=== PATIENT | female | born 1965 | race Caucasian/White ===

== ENCOUNTER 2020-10-28 13:19 | Inpatient (IN) ==
[2020-10-28] MEDS ORDERED: Nitroglycerin 0.4 MG TAB.SUBL SL PRN (15:58)
[2020-10-28] MEDS: *HR* OxyCODONE/APAP 5/325 TABLET PO PRN (18:50)
[2020-10-28] MEDS: Ranolazine 500 MG TAB.ER.12H PO SCH (20:32)
[2020-10-28] MEDS: Pregabalin 50 MG CAPSULE PO SCH (20:32)
[2020-10-28] MEDS: *HR* Metformin 500 MG TABLET PO SCH (20:32)
[2020-10-28] MEDS: carvediloL 25 MG TABLET PO SCH (20:35)
[2020-10-29] MEDS: CANAGLIFLOZIN PO SCH (00:22)
[2020-10-29] MEDS: *HR* OxyCODONE/APAP 5/325 TABLET PO PRN ×3 (00:54→16:53)
[2020-10-29 08:06] LABS: Basophils % 0.6 %; Eosinophils # 0.1 K/mcL (0.0-0.6); Eosinophils % 1.3 %; Hematocrit 23.3 % (35.3-44.9); Hemoglobin 7.8 g/dL (11.5-15.4); Immature Granulocytes % 1.3 % (0-4); Lymphocytes # 1.4 K/mcL (0.6-4.6); Lymphocytes % 20.1 %; Mean Corpuscular HGB Conc 33.5 g/dL (31.6-35.5); Mean Corpuscular Hemoglobin 28.3 pg (28.0-33.3); Mean Corpuscular Volume 84.4 fL (83.0-100.0); Mean Platelet Volume 10.6 fL (9.4-12.4); Monocytes # 0.8 K/mcL (0.0-1.3); Monocytes % 11.6 %; Neutrophils # 4.6 K/mcL (1.6-8.9); Platelet Count 279 K/mcL (140-400); Red Blood Count 2.76 M/mcL (3.82-4.97); Red Cell Distribution Width 13.4 % (11.5-14.5); Segmented Neutrophils % 65.1 %; White Blood Count 7.1 K/mcL (4.3-11.1)
[2020-10-29 08:21] LABS: BUN/Creatinine Ratio 19 (6-26); Blood Urea Nitrogen 13 mg/dL (6-20); Carbon Dioxide 31 mEq/L (23-29); Chloride 98 mEq/L (98-107); Glucose 180 mg/dL (70-105); Osmolality,Calculated 285 (280-300); Potassium 3.6 mEq/L (3.5-5.1); Sodium 135 mEq/L (136-145); eGFR For African Americans > 60 (> 60); eGFR For Non-African Americans > 60 (> 60)
[2020-10-29] MEDS: lisinopriL 20 MG TABLET PO SCH (08:28)
[2020-10-29] MEDS: Ranolazine 500 MG TAB.ER.12H PO SCH ×2 (08:29→20:34)
[2020-10-29] MEDS: *HR* Amiodarone 200 MG TABLET PO SCH (08:29)
[2020-10-29] MEDS: FLUoxetine 20 MG CAPSULE PO SCH (08:29)
[2020-10-29] MEDS: Aspirin Enteric Coated 81 MG Tablet PO SCH (08:29)
[2020-10-29] MEDS: carvediloL 25 MG TABLET PO SCH ×2 (08:29→16:53)
[2020-10-29] MEDS: *HR* Metformin 500 MG TABLET PO SCH ×2 (08:29→20:34)
[2020-10-29] MEDS: *HR* Pioglitazone 15 MG TABLET PO SCH (08:30)
[2020-10-29] MEDS ORDERED: Insulin DETEMIR 100 UNIT/ML X5UNITS SUBQ SCH (09:00)
[2020-10-29] MEDS ORDERED: Dextrose Gel 15 GM/37.5 ML TUBE PO PRN ×2 (11:54)
[2020-10-29] MEDS ORDERED: D5% in Water 1,000 ML IVC PRN (11:54)
[2020-10-29] MEDS ORDERED: *HR* Dextrose 50 % in Water (Vial) 50 ML VIAL IVP PRN (11:54)
[2020-10-29] MEDS ORDERED: Insulin DETEMIR 100 UNIT/ML X5UNITS SUBQ ONE ×2 (16:00→16:45)
[2020-10-29] MEDS: (Dulaglutide [Trulicity] 1.5 MG/0.5 ML Pen.Injctr) SQ SCH (16:22)
[2020-10-29] MEDS ORDERED: Insulin LISPRO 300 UNITS/3 ML VIAL SUBQ SCH ×2 (16:30→21:00)
[2020-10-29] MEDS: Pregabalin 50 MG CAPSULE PO SCH (20:41)
[2020-10-30] MEDS: *HR* OxyCODONE/APAP 5/325 TABLET PO PRN ×3 (01:04→20:46)
[2020-10-30] MEDS: CANAGLIFLOZIN PO SCH ×2 (02:57→20:58)
[2020-10-30 05:49] LABS: BUN/Creatinine Ratio 23 (6-26); Blood Urea Nitrogen 22 mg/dL (6-20); Calcium 7.9 mg/dL (8.6-10.3); Carbon Dioxide 30 mEq/L (23-29); Chloride 97 mEq/L (98-107); Glucose 207 mg/dL (70-105); Osmolality,Calculated 287 (280-300); Potassium 4.2 mEq/L (3.5-5.1); Sodium 134 mEq/L (136-145); eGFR For African Americans > 60 (> 60); eGFR For Non-African Americans > 60 (> 60)
[2020-10-30] MEDS: *HR* Metformin 500 MG TABLET PO SCH ×2 (08:16→20:22)
[2020-10-30] MEDS: Aspirin Enteric Coated 81 MG Tablet PO SCH (08:16)
[2020-10-30] MEDS: *HR* Pioglitazone 15 MG TABLET PO SCH (08:16)
[2020-10-30] MEDS: FLUoxetine 20 MG CAPSULE PO SCH (08:16)
[2020-10-30] MEDS: *HR* Amiodarone 200 MG TABLET PO SCH (08:16)
[2020-10-30] MEDS: Ranolazine 500 MG TAB.ER.12H PO SCH ×2 (08:17→20:22)
[2020-10-30] MEDS: carvediloL 6.25 MG TABLET PO SCH ×2 (08:17→16:36)
[2020-10-30] MEDS: Insulin DETEMIR 100 UNIT/ML X5UNITS SUBQ SCH ×2 (08:23→20:25)
[2020-10-30] MEDS: Insulin LISPRO 300 UNITS/3 ML VIAL SUBQ SCH ×4 (08:23→20:57)
[2020-10-30] MEDS: Pregabalin 50 MG CAPSULE PO SCH (20:23)
[2020-10-31] MEDS: Insulin LISPRO 300 UNITS/3 ML VIAL SUBQ SCH ×4 (07:53→21:11)
[2020-10-31] MEDS: Aspirin Enteric Coated 81 MG Tablet PO SCH (08:54)
[2020-10-31] MEDS: *HR* Metformin 500 MG TABLET PO SCH ×2 (08:54→17:15)
[2020-10-31] MEDS: *HR* Amiodarone 200 MG TABLET PO SCH (08:55)
[2020-10-31] MEDS: carvediloL 6.25 MG TABLET PO SCH ×2 (08:55→17:16)
[2020-10-31] MEDS: FLUoxetine 20 MG CAPSULE PO SCH (08:55)
[2020-10-31] MEDS: *HR* Pioglitazone 15 MG TABLET PO SCH (08:55)
[2020-10-31] MEDS: Ranolazine 500 MG TAB.ER.12H PO SCH ×2 (08:55→20:58)
[2020-10-31] MEDS: Insulin DETEMIR 100 UNIT/ML X5UNITS SUBQ SCH ×2 (10:08→20:59)
[2020-10-31] MEDS ORDERED: Furosemide 20 MG/2 ML VIAL IVP ONE (11:44)
[2020-10-31] MEDS: *HR* OxyCODONE/APAP 5/325 TABLET PO PRN ×2 (14:30→20:59)
[2020-10-31] MEDS: Pregabalin 50 MG CAPSULE PO SCH (20:59)
[2020-10-31] MEDS: CANAGLIFLOZIN PO SCH (21:11)
[2020-11-01] MEDS: Insulin DETEMIR 100 UNIT/ML X5UNITS SUBQ SCH (08:30)
[2020-11-01] MEDS: *HR* Metformin 500 MG TABLET PO SCH ×2 (08:31→17:18)
[2020-11-01] MEDS: *HR* Pioglitazone 15 MG TABLET PO SCH (08:31)
[2020-11-01] MEDS: Ranolazine 500 MG TAB.ER.12H PO SCH ×2 (08:32→20:33)
[2020-11-01] MEDS: Insulin LISPRO 300 UNITS/3 ML VIAL SUBQ SCH ×3 (08:32→17:18)
[2020-11-01] MEDS: carvediloL 6.25 MG TABLET PO SCH ×2 (08:32→17:18)
[2020-11-01] MEDS: FLUoxetine 20 MG CAPSULE PO SCH (08:32)
[2020-11-01] MEDS: *HR* Amiodarone 200 MG TABLET PO SCH (08:37)
[2020-11-01] MEDS: *HR* OxyCODONE/APAP 5/325 TABLET PO PRN ×2 (08:37→12:51)
[2020-11-01] MEDS: Aspirin Enteric Coated 81 MG Tablet PO SCH (08:42)
[2020-11-01] MEDS: Pregabalin 50 MG CAPSULE PO SCH (20:32)
[2020-11-02] MEDS: *HR* OxyCODONE/APAP 5/325 TABLET PO PRN ×4 (04:06→21:52)
[2020-11-02] MEDS: CANAGLIFLOZIN PO SCH ×2 (04:07→21:47)
[2020-11-02] MEDS: Insulin LISPRO 300 UNITS/3 ML VIAL SUBQ SCH ×5 (05:58→19:53)
[2020-11-02] MEDS: Insulin DETEMIR 100 UNIT/ML X5UNITS SUBQ SCH ×3 (05:58→21:46)
[2020-11-02 07:28] LABS: Hematocrit 22.4 % (35.3-44.9); Hemoglobin 7.1 g/dL (11.5-15.4); Mean Corpuscular HGB Conc 31.7 g/dL (31.6-35.5); Mean Corpuscular Hemoglobin 27.4 pg (28.0-33.3); Mean Corpuscular Volume 86.5 fL (83.0-100.0); Mean Platelet Volume 9.7 fL (9.4-12.4); Platelet Count 315 K/mcL (140-400); Red Blood Count 2.59 M/mcL (3.82-4.97); Red Cell Distribution Width 13.5 % (11.5-14.5); White Blood Count 8.6 K/mcL (4.3-11.1)
[2020-11-02 07:44] LABS: BUN/Creatinine Ratio 31 (6-26); Blood Urea Nitrogen 22 mg/dL (6-20); Calcium 7.9 mg/dL (8.6-10.3); Carbon Dioxide 31 mEq/L (23-29); Chloride 99 mEq/L (98-107); Glucose 149 mg/dL (70-105); Magnesium 1.3 mg/dL (1.6-2.6); Osmolality,Calculated 288 (280-300); Sodium 136 mEq/L (136-145); eGFR For African Americans > 60 (> 60); eGFR For Non-African Americans > 60 (> 60)
[2020-11-02] MEDS ORDERED: 0.9 % Sodium Chloride 250 ML IVC SCH (08:00)
[2020-11-02] MEDS: Ranolazine 500 MG TAB.ER.12H PO SCH ×2 (09:06→21:52)
[2020-11-02] MEDS: *HR* Amiodarone 200 MG TABLET PO SCH (09:06)
[2020-11-02] MEDS: FLUoxetine 20 MG CAPSULE PO SCH (09:06)
[2020-11-02] MEDS: Aspirin Enteric Coated 81 MG Tablet PO SCH (09:06)
[2020-11-02] MEDS: *HR* Pioglitazone 15 MG TABLET PO SCH (09:06)
[2020-11-02] MEDS: *HR* Metformin 500 MG TABLET PO SCH ×2 (09:06→15:44)
[2020-11-02] MEDS: lisinopriL 20 MG TABLET PO SCH (09:39)
[2020-11-02] MEDS ORDERED: Furosemide 20 MG TABLET PO STA (15:05)
[2020-11-02] MEDS: Pregabalin 50 MG CAPSULE PO SCH (21:52)
[2020-11-03] MEDS: *HR* OxyCODONE/APAP 5/325 TABLET PO PRN ×5 (04:31→22:43)
[2020-11-03] MEDS: lisinopriL 20 MG TABLET PO SCH (07:48)
[2020-11-03] MEDS: *HR* Pioglitazone 15 MG TABLET PO SCH (07:48)
[2020-11-03] MEDS: Insulin LISPRO 300 UNITS/3 ML VIAL SUBQ SCH ×4 (07:49→20:45)
[2020-11-03] MEDS: *HR* Metformin 500 MG TABLET PO SCH ×2 (07:49→17:03)
[2020-11-03] MEDS: Ranolazine 500 MG TAB.ER.12H PO SCH ×2 (07:49→21:17)
[2020-11-03] MEDS: *HR* Amiodarone 200 MG TABLET PO SCH (07:49)
[2020-11-03] MEDS: Aspirin Enteric Coated 81 MG Tablet PO SCH (07:49)
[2020-11-03] MEDS: FLUoxetine 20 MG CAPSULE PO SCH (07:49)
[2020-11-03 09:42] LABS: Hemoglobin 8.8 g/dL (11.5-15.4)
[2020-11-03] MEDS: Insulin DETEMIR 100 UNIT/ML X5UNITS SUBQ SCH ×2 (09:54→21:21)
[2020-11-03 13:25] LABS: Iron 25 mcg/dL (50-170)
[2020-11-03 13:47] LABS: Folate 5.4 ng/mL (3.0-16.0)
[2020-11-03 14:28] LABS: % Iron Saturation 9 % (15-50); Transferrin 190 mg/dL (203-362)
[2020-11-03] MEDS: CANAGLIFLOZIN PO SCH (20:46)
[2020-11-03] MEDS: Pregabalin 50 MG CAPSULE PO SCH (21:20)
[2020-11-04] MEDS: *HR* OxyCODONE/APAP 5/325 TABLET PO PRN ×3 (05:34→23:34)
[2020-11-04] MEDS ORDERED: *HR* OxyCODONE Immed Rel 5 MG TABLET PO PRN (05:43)
[2020-11-04] MEDS: Insulin LISPRO 300 UNITS/3 ML VIAL SUBQ SCH ×4 (07:56→20:12)
[2020-11-04 08:33] LABS: Basophils % 0.4 %; Eosinophils # 0.1 K/mcL (0.0-0.6); Eosinophils % 1.2 %; Hematocrit 28.1 % (35.3-44.9); Immature Granulocytes % 0.7 % (0-4); Lymphocytes # 1.4 K/mcL (0.6-4.6); Lymphocytes % 16.2 %; Mean Corpuscular Hemoglobin 27.8 pg (28.0-33.3); Mean Corpuscular Volume 86.7 fL (83.0-100.0); Mean Platelet Volume 9.7 fL (9.4-12.4); Monocytes # 0.5 K/mcL (0.0-1.3); Monocytes % 6.5 %; Neutrophils # 6.3 K/mcL (1.6-8.9); Platelet Count 332 K/mcL (140-400); Red Blood Count 3.24 M/mcL (3.82-4.97); Red Cell Distribution Width 13.7 % (11.5-14.5); White Blood Count 8.4 K/mcL (4.3-11.1)
[2020-11-04 08:53] LABS: BUN/Creatinine Ratio 23 (6-26); Blood Urea Nitrogen 14 mg/dL (6-20); Calcium 8.4 mg/dL (8.6-10.3); Carbon Dioxide 29 mEq/L (23-29); Chloride 99 mEq/L (98-107); Glucose 97 mg/dL (70-105); Magnesium 1.7 mg/dL (1.6-2.6); Osmolality,Calculated 282 (280-300); Potassium 3.8 mEq/L (3.5-5.1); Sodium 136 mEq/L (136-145); eGFR For African Americans > 60 (> 60); eGFR For Non-African Americans > 60 (> 60)
[2020-11-04] MEDS: *HR* Amiodarone 200 MG TABLET PO SCH (09:30)
[2020-11-04] MEDS: *HR* Metformin 500 MG TABLET PO SCH ×2 (09:30→17:10)
[2020-11-04] MEDS: Aspirin Enteric Coated 81 MG Tablet PO SCH (09:30)
[2020-11-04] MEDS: FLUoxetine 20 MG CAPSULE PO SCH (09:31)
[2020-11-04] MEDS: Cyanocobalamin (B-12) 1,000 MCG TABLET PO SCH (09:31)
[2020-11-04] MEDS: Ranolazine 500 MG TAB.ER.12H PO SCH ×2 (09:31→20:16)
[2020-11-04] MEDS: *HR* Pioglitazone 15 MG TABLET PO SCH (09:31)
[2020-11-04] MEDS: lisinopriL 20 MG TABLET PO SCH (09:32)
[2020-11-04] MEDS: Insulin DETEMIR 100 UNIT/ML X5UNITS SUBQ SCH ×2 (09:32→20:14)
[2020-11-04] MEDS: Pregabalin 50 MG CAPSULE PO SCH (20:15)
[2020-11-04] MEDS: CANAGLIFLOZIN PO SCH (20:16)
[2020-11-04] MEDS ORDERED: Ondansetron ODT 4 MG TAB.RAPDIS SL PRN (23:46)
[2020-11-05] MEDS: carvediloL 6.25 MG TABLET PO SCH ×2 (07:27→17:32)
[2020-11-05] MEDS: Insulin LISPRO 300 UNITS/3 ML VIAL SUBQ SCH ×4 (07:27→20:41)
[2020-11-05] MEDS: Cyanocobalamin (B-12) 1,000 MCG TABLET PO SCH (07:28)
[2020-11-05] MEDS: Ranolazine 500 MG TAB.ER.12H PO SCH ×2 (07:28→20:38)
[2020-11-05] MEDS: *HR* Metformin 500 MG TABLET PO SCH ×2 (07:28→17:31)
[2020-11-05] MEDS: lisinopriL 20 MG TABLET PO SCH (07:28)
[2020-11-05] MEDS: *HR* Pioglitazone 15 MG TABLET PO SCH (07:28)
[2020-11-05] MEDS: Aspirin Enteric Coated 81 MG Tablet PO SCH (07:28)
[2020-11-05] MEDS: FLUoxetine 20 MG CAPSULE PO SCH (07:28)
[2020-11-05] MEDS: *HR* OxyCODONE/APAP 5/325 TABLET PO PRN ×3 (07:29→23:45)
[2020-11-05] MEDS: *HR* Amiodarone 200 MG TABLET PO SCH (07:29)
[2020-11-05] MEDS: Insulin DETEMIR 100 UNIT/ML X5UNITS SUBQ SCH ×2 (08:40→20:42)
[2020-11-05] MEDS: (Dulaglutide [Trulicity] 1.5 MG/0.5 ML Pen.Injctr) SQ SCH (09:43)
[2020-11-05] MEDS ORDERED: Isovue-370 500 ML BOTTLE IVP ONE (10:01)
[2020-11-05] MEDS: Pregabalin 50 MG CAPSULE PO SCH (20:38)
[2020-11-05] MEDS: CANAGLIFLOZIN PO SCH (20:38)
[2020-11-06 06:08] LABS: Basophils % 0.4 %; Eosinophils # 0.1 K/mcL (0.0-0.6); Eosinophils % 1.5 %; Hematocrit 24.8 % (35.3-44.9); Hemoglobin 8.1 g/dL (11.5-15.4); Immature Granulocytes % 0.4 % (0-4); Lymphocytes # 1.1 K/mcL (0.6-4.6); Lymphocytes % 15.4 %; Mean Corpuscular HGB Conc 32.7 g/dL (31.6-35.5); Mean Corpuscular Hemoglobin 28.3 pg (28.0-33.3); Mean Corpuscular Volume 86.7 fL (83.0-100.0); Mean Platelet Volume 10.2 fL (9.4-12.4); Monocytes # 0.6 K/mcL (0.0-1.3); Monocytes % 7.7 %; Neutrophils # 5.4 K/mcL (1.6-8.9); Platelet Count 325 K/mcL (140-400); Red Blood Count 2.86 M/mcL (3.82-4.97); Red Cell Distribution Width 13.7 % (11.5-14.5); Segmented Neutrophils % 74.6 %; White Blood Count 7.2 K/mcL (4.3-11.1)
[2020-11-06] MEDS: Insulin LISPRO 300 UNITS/3 ML VIAL SUBQ SCH ×4 (07:31→20:17)
[2020-11-06 07:50] LABS: BUN/Creatinine Ratio 24 (6-26); Blood Urea Nitrogen 14 mg/dL (6-20); Calcium 8.1 mg/dL (8.6-10.3); Carbon Dioxide 29 mEq/L (23-29); Chloride 102 mEq/L (98-107); Glucose 80 mg/dL (70-105); Osmolality,Calculated 285 (280-300); Potassium 4.3 mEq/L (3.5-5.1); Sodium 138 mEq/L (136-145); eGFR For African Americans > 60 (> 60); eGFR For Non-African Americans > 60 (> 60)
[2020-11-06] MEDS: lisinopriL 20 MG TABLET PO SCH (08:35)
[2020-11-06] MEDS: *HR* Pioglitazone 15 MG TABLET PO SCH (08:35)
[2020-11-06] MEDS: carvediloL 6.25 MG TABLET PO SCH ×3 (08:36→17:13)
[2020-11-06] MEDS: Ranolazine 500 MG TAB.ER.12H PO SCH ×2 (08:36→20:16)
[2020-11-06] MEDS: *HR* Amiodarone 200 MG TABLET PO SCH (08:36)
[2020-11-06] MEDS: Cyanocobalamin (B-12) 1,000 MCG TABLET PO SCH (08:36)
[2020-11-06] MEDS: FLUoxetine 20 MG CAPSULE PO SCH (08:36)
[2020-11-06] MEDS: *HR* Metformin 500 MG TABLET PO SCH ×2 (08:36→17:09)
[2020-11-06] MEDS: Aspirin Enteric Coated 81 MG Tablet PO SCH (08:36)
[2020-11-06] MEDS: Insulin DETEMIR 100 UNIT/ML X5UNITS SUBQ SCH ×2 (09:16→20:17)
[2020-11-06] MEDS: *HR* OxyCODONE/APAP 5/325 TABLET PO PRN ×3 (09:20→20:17)
[2020-11-06] MEDS ORDERED: Ipratropium/Albuterol Neb 3 ML IH PRN (15:57)
[2020-11-06] MEDS: Pregabalin 50 MG CAPSULE PO SCH (20:16)
[2020-11-06] MEDS: CANAGLIFLOZIN PO SCH (20:18)
[2020-11-07] MEDS: Aspirin Enteric Coated 81 MG Tablet PO SCH (08:11)
[2020-11-07] MEDS: FLUoxetine 20 MG CAPSULE PO SCH (08:11)
[2020-11-07] MEDS: *HR* Metformin 500 MG TABLET PO SCH ×2 (08:11→16:33)
[2020-11-07] MEDS: Cyanocobalamin (B-12) 1,000 MCG TABLET PO SCH (08:11)
[2020-11-07] MEDS: Ranolazine 500 MG TAB.ER.12H PO SCH ×2 (08:11→22:00)
[2020-11-07] MEDS: *HR* Pioglitazone 15 MG TABLET PO SCH (08:11)
[2020-11-07] MEDS: *HR* Amiodarone 200 MG TABLET PO SCH (08:11)
[2020-11-07] MEDS: carvediloL 6.25 MG TABLET PO SCH ×2 (08:11→16:33)
[2020-11-07] MEDS: lisinopriL 20 MG TABLET PO SCH (08:12)
[2020-11-07] MEDS: *HR* OxyCODONE/APAP 5/325 TABLET PO PRN ×2 (08:12→16:33)
[2020-11-07] MEDS: Insulin LISPRO 300 UNITS/3 ML VIAL SUBQ SCH ×4 (08:12→21:23)
[2020-11-07] MEDS: Insulin DETEMIR 100 UNIT/ML X5UNITS SUBQ SCH ×2 (08:20→22:00)
[2020-11-07 09:37] LABS: Basophils % 0.6 %; Eosinophils # 0.1 K/mcL (0.0-0.6); Eosinophils % 1.4 %; Hematocrit 27.9 % (35.3-44.9); Hemoglobin 8.9 g/dL (11.5-15.4); Immature Granulocytes % 0.4 % (0-4); Lymphocytes # 0.9 K/mcL (0.6-4.6); Lymphocytes % 12.8 %; Mean Corpuscular HGB Conc 31.9 g/dL (31.6-35.5); Mean Corpuscular Hemoglobin 27.7 pg (28.0-33.3); Mean Corpuscular Volume 86.9 fL (83.0-100.0); Mean Platelet Volume 9.7 fL (9.4-12.4); Monocytes # 0.4 K/mcL (0.0-1.3); Neutrophils # 5.5 K/mcL (1.6-8.9); Platelet Count 303 K/mcL (140-400); Red Blood Count 3.21 M/mcL (3.82-4.97); Red Cell Distribution Width 13.5 % (11.5-14.5); Segmented Neutrophils % 78.8 %
[2020-11-07] MEDS: Pregabalin 50 MG CAPSULE PO SCH (22:00)
[2020-11-07] MEDS: CANAGLIFLOZIN PO SCH (22:01)
[2020-11-08] MEDS: *HR* Amiodarone 200 MG TABLET PO SCH (09:26)
[2020-11-08] MEDS: FLUoxetine 20 MG CAPSULE PO SCH (09:27)
[2020-11-08] MEDS: *HR* Pioglitazone 15 MG TABLET PO SCH (09:27)
[2020-11-08] MEDS: *HR* Metformin 500 MG TABLET PO SCH ×2 (09:27→16:39)
[2020-11-08] MEDS: Cyanocobalamin (B-12) 1,000 MCG TABLET PO SCH (09:27)
[2020-11-08] MEDS: *HR* OxyCODONE/APAP 5/325 TABLET PO PRN ×3 (09:27→21:10)
[2020-11-08] MEDS: lisinopriL 20 MG TABLET PO SCH (09:27)
[2020-11-08] MEDS: carvediloL 6.25 MG TABLET PO SCH ×2 (09:27→16:39)
[2020-11-08] MEDS: Aspirin Enteric Coated 81 MG Tablet PO SCH (09:27)
[2020-11-08] MEDS: Ranolazine 500 MG TAB.ER.12H PO SCH ×2 (09:27→21:07)
[2020-11-08] MEDS: Insulin DETEMIR 100 UNIT/ML X5UNITS SUBQ SCH ×2 (09:28→21:08)
[2020-11-08] MEDS: Insulin LISPRO 300 UNITS/3 ML VIAL SUBQ SCH ×4 (09:32→21:07)
[2020-11-08] MEDS: Pregabalin 50 MG CAPSULE PO SCH (21:07)
[2020-11-08] MEDS: CANAGLIFLOZIN PO SCH (21:08)
[2020-11-09 06:35] VITALS: BP 126/66
[2020-11-09] MEDS: Insulin LISPRO 300 UNITS/3 ML VIAL SUBQ SCH ×3 (08:36→16:40)
[2020-11-09] MEDS: *HR* OxyCODONE/APAP 5/325 TABLET PO PRN (08:43)
[2020-11-09] MEDS: *HR* Pioglitazone 15 MG TABLET PO SCH (08:43)
[2020-11-09] MEDS: Aspirin Enteric Coated 81 MG Tablet PO SCH (08:43)
[2020-11-09] MEDS: Cyanocobalamin (B-12) 1,000 MCG TABLET PO SCH (08:44)
[2020-11-09] MEDS: Ranolazine 500 MG TAB.ER.12H PO SCH (08:44)
[2020-11-09] MEDS: carvediloL 6.25 MG TABLET PO SCH ×2 (08:44→16:43)
[2020-11-09] MEDS: *HR* Amiodarone 200 MG TABLET PO SCH (08:44)
[2020-11-09] MEDS: FLUoxetine 20 MG CAPSULE PO SCH (08:44)
[2020-11-09] MEDS: *HR* Metformin 500 MG TABLET PO SCH ×2 (08:44→16:43)
[2020-11-09] MEDS: Insulin DETEMIR 100 UNIT/ML X5UNITS SUBQ SCH (08:45)
[2020-11-09] MEDS: lisinopriL 20 MG TABLET PO SCH (08:45)
[2020-11-09] MEDS ORDERED: Doxycycline 100 MG CAPSULE PO ONE (16:26)
== END 2020-11-09 17:50 | disposition home health service (06) | DRG 949 ==
LOC: INPPIK 18:17
PROVIDERS: ADMIT Family Medicine; ATTEND Family Medicine

== ENCOUNTER 2021-02-05 17:11 | Inpatient (IN) ==
[2021-02-05] MEDS ORDERED: Nitroglycerin 0.4 MG TAB.SUBL SL PRN (18:37)
[2021-02-05] MEDS: (Dulaglutide [Trulicity] 1.5 MG/0.5 ML Pen.Injctr) SQ SCH (20:54)
[2021-02-05] MEDS: Ranolazine 500 MG TAB.ER.12H PO SCH (20:57)
[2021-02-05] MEDS: *HR* OxyCODONE/APAP 5/325 TABLET PO PRN (20:57)
[2021-02-05] MEDS: Pregabalin 50 MG CAPSULE PO SCH (20:58)
[2021-02-06 06:15] LABS: Basophils % 0.3 %; Eosinophils # 0.1 K/mcL (0.0-0.6); Eosinophils % 1.2 %; Hematocrit 27.1 % (35.3-44.9); Hemoglobin 8.7 g/dL (11.5-15.4); Immature Granulocytes % 0.9 % (0-4); Lymphocytes # 1.2 K/mcL (0.6-4.6); Lymphocytes % 18.2 %; Mean Corpuscular HGB Conc 32.1 g/dL (31.6-35.5); Mean Corpuscular Hemoglobin 24.9 pg (28.0-33.3); Mean Corpuscular Volume 77.4 fL (83.0-100.0); Mean Platelet Volume 10.6 fL (9.4-12.4); Monocytes # 0.9 K/mcL (0.0-1.3); Monocytes % 13.5 %; Neutrophils # 4.5 K/mcL (1.6-8.9); Platelet Count 283 K/mcL (140-400); Red Cell Distribution Width 17.2 % (11.5-14.5); Segmented Neutrophils % 65.9 %; White Blood Count 6.8 K/mcL (4.3-11.1)
[2021-02-06 06:34] LABS: BUN/Creatinine Ratio 21 (6-26); Blood Urea Nitrogen 22 mg/dL (6-20); Carbon Dioxide 31 mEq/L (23-29); Chloride 102 mEq/L (98-107); Glucose 150 mg/dL (70-105); Osmolality,Calculated 290 (280-300); Potassium 4.1 mEq/L (3.5-5.1); Sodium 137 mEq/L (136-145); eGFR For African Americans > 60 (> 60); eGFR For Non-African Americans 53 (> 60)
[2021-02-06] MEDS ORDERED: Insulin DETEMIR 100 UNIT/ML X5UNITS SUBQ SCH ×2 (09:00→09:30)
[2021-02-06] MEDS ORDERED: *HR* Pioglitazone 30 MG TABLET PO SCH (09:00)
[2021-02-06] MEDS: Aspirin Enteric Coated 81 MG Tablet PO SCH (09:40)
[2021-02-06] MEDS: carvediloL 6.25 MG TABLET PO SCH ×2 (09:40→16:41)
[2021-02-06] MEDS: *HR* Metformin 500 MG TABLET PO SCH ×2 (09:41→16:41)
[2021-02-06] MEDS: Ranolazine 500 MG TAB.ER.12H PO SCH ×2 (09:41→21:28)
[2021-02-06] MEDS: Pregabalin 50 MG CAPSULE PO SCH ×3 (09:41→21:27)
[2021-02-06] MEDS: *HR* Amiodarone 200 MG TABLET PO SCH (09:41)
[2021-02-06] MEDS: *HR* Pioglitazone 15 MG TABLET PO SCH (09:41)
[2021-02-06] MEDS: FLUoxetine 20 MG CAPSULE PO SCH (09:42)
[2021-02-06] MEDS: *HR* OxyCODONE/APAP 5/325 TABLET PO PRN ×3 (09:48→21:40)
[2021-02-06] MEDS: Ondansetron ODT 4 MG TAB.RAPDIS SL PRN (15:13)
[2021-02-06] MEDS ORDERED: *HR* Dextrose 50 % in Water (Vial) 50 ML VIAL IVP PRN (15:24)
[2021-02-06] MEDS ORDERED: D5% in Water 1,000 ML IVC PRN (15:24)
[2021-02-06] MEDS ORDERED: Dextrose Gel 15 GM/37.5 ML TUBE PO PRN ×2 (15:24)
[2021-02-06] MEDS: Insulin LISPRO 300 UNITS/3 ML VIAL SUBQ SCH ×2 (17:39→21:28)
[2021-02-07] MEDS: *HR* Pioglitazone 15 MG TABLET PO SCH (08:24)
[2021-02-07] MEDS: Ranolazine 500 MG TAB.ER.12H PO SCH ×2 (08:24→20:42)
[2021-02-07] MEDS: carvediloL 6.25 MG TABLET PO SCH ×2 (08:24→17:05)
[2021-02-07] MEDS: FLUoxetine 20 MG CAPSULE PO SCH (08:24)
[2021-02-07] MEDS: Aspirin Enteric Coated 81 MG Tablet PO SCH (08:24)
[2021-02-07] MEDS: *HR* Amiodarone 200 MG TABLET PO SCH (08:24)
[2021-02-07] MEDS: *HR* Metformin 500 MG TABLET PO SCH ×2 (08:24→17:04)
[2021-02-07] MEDS: Insulin LISPRO 300 UNITS/3 ML VIAL SUBQ SCH ×4 (08:25→20:43)
[2021-02-07] MEDS: Pregabalin 50 MG CAPSULE PO SCH ×3 (08:25→20:42)
[2021-02-07] MEDS: Insulin DETEMIR 100 UNIT/ML X5UNITS SUBQ SCH ×2 (08:25→20:42)
[2021-02-07] MEDS: *HR* OxyCODONE/APAP 5/325 TABLET PO PRN ×3 (08:25→20:41)
[2021-02-07] MEDS: Sennosides/Docusate Sodium TABLET PO PRN (20:41)
[2021-02-08] MEDS: *HR* OxyCODONE/APAP 5/325 TABLET PO PRN (02:50)
[2021-02-08 08:26] LABS: Hematocrit 29.5 % (35.3-44.9); Hemoglobin 9.3 g/dL (11.5-15.4); Mean Corpuscular HGB Conc 31.5 g/dL (31.6-35.5); Mean Corpuscular Hemoglobin 24.9 pg (28.0-33.3); Mean Corpuscular Volume 79.1 fL (83.0-100.0); Platelet Count 311 K/mcL (140-400); Red Blood Count 3.73 M/mcL (3.82-4.97); Red Cell Distribution Width 17.4 % (11.5-14.5)
[2021-02-08 08:35] LABS: BUN/Creatinine Ratio 19 (6-26); Blood Urea Nitrogen 21 mg/dL (6-20); Calcium 8.4 mg/dL (8.6-10.3); Carbon Dioxide 32 mEq/L (23-29); Chloride 100 mEq/L (98-107); Glucose 126 mg/dL (70-105); Osmolality,Calculated 293 (280-300); Potassium 3.8 mEq/L (3.5-5.1); Sodium 139 mEq/L (136-145); eGFR For African Americans > 60 (> 60); eGFR For Non-African Americans 51 (> 60)
[2021-02-08] MEDS: Aspirin Enteric Coated 81 MG Tablet PO SCH (09:05)
[2021-02-08] MEDS: FLUoxetine 20 MG CAPSULE PO SCH (09:05)
[2021-02-08] MEDS: *HR* Pioglitazone 15 MG TABLET PO SCH (09:05)
[2021-02-08] MEDS: Ranolazine 500 MG TAB.ER.12H PO SCH ×2 (09:05→21:13)
[2021-02-08] MEDS: Ondansetron ODT 4 MG TAB.RAPDIS SL PRN ×2 (09:05→21:17)
[2021-02-08] MEDS: Pregabalin 50 MG CAPSULE PO SCH ×3 (09:05→21:13)
[2021-02-08] MEDS: carvediloL 6.25 MG TABLET PO SCH ×2 (09:05→16:44)
[2021-02-08] MEDS: *HR* Metformin 500 MG TABLET PO SCH ×2 (09:06→16:34)
[2021-02-08] MEDS: *HR* Amiodarone 200 MG TABLET PO SCH (09:06)
[2021-02-08] MEDS: Insulin LISPRO 300 UNITS/3 ML VIAL SUBQ SCH ×4 (09:07→21:13)
[2021-02-08] MEDS: Insulin DETEMIR 100 UNIT/ML X5UNITS SUBQ SCH ×2 (09:07→21:26)
[2021-02-08 12:56] LABS: Iron < 10 mcg/dL (50-170); Transferrin 167 mg/dL (203-362)
[2021-02-08 14:06] LABS: Estimated Average Glucose 192 mg/dl; Hemoglobin A1C 8.3 %
[2021-02-08] MEDS: *HR* HYDROcodone/Acet 7.5/325 mg TABLET PO PRN ×2 (14:57→23:00)
[2021-02-08] MEDS: Sennosides/Docusate Sodium TABLET PO PRN (21:25)
[2021-02-09] MEDS: Insulin LISPRO 300 UNITS/3 ML VIAL SUBQ SCH ×4 (07:42→22:06)
[2021-02-09] MEDS: *HR* Pioglitazone 15 MG TABLET PO SCH (09:10)
[2021-02-09] MEDS: *HR* Metformin 500 MG TABLET PO SCH ×2 (09:10→16:40)
[2021-02-09] MEDS: Aspirin Enteric Coated 81 MG Tablet PO SCH (09:11)
[2021-02-09] MEDS: FLUoxetine 20 MG CAPSULE PO SCH (09:11)
[2021-02-09] MEDS: *HR* Amiodarone 200 MG TABLET PO SCH (09:11)
[2021-02-09] MEDS: Sennosides/Docusate Sodium TABLET PO PRN ×2 (09:11→22:03)
[2021-02-09] MEDS: *HR* HYDROcodone/Acet 7.5/325 mg TABLET PO PRN ×2 (09:12→16:44)
[2021-02-09] MEDS: Ranolazine 500 MG TAB.ER.12H PO SCH ×2 (09:12→22:04)
[2021-02-09] MEDS: carvediloL 6.25 MG TABLET PO SCH ×2 (09:12→16:40)
[2021-02-09] MEDS: Ondansetron ODT 4 MG TAB.RAPDIS SL PRN (09:12)
[2021-02-09] MEDS: Pregabalin 50 MG CAPSULE PO SCH ×3 (09:12→22:04)
[2021-02-09] MEDS: Insulin DETEMIR 100 UNIT/ML X5UNITS SUBQ SCH ×2 (09:15→22:04)
[2021-02-10] MEDS: Insulin LISPRO 300 UNITS/3 ML VIAL SUBQ SCH ×4 (07:36→22:54)
[2021-02-10] MEDS: FLUoxetine 20 MG CAPSULE PO SCH (09:40)
[2021-02-10] MEDS: *HR* Amiodarone 200 MG TABLET PO SCH (09:40)
[2021-02-10] MEDS: Aspirin Enteric Coated 81 MG Tablet PO SCH (09:40)
[2021-02-10] MEDS: carvediloL 6.25 MG TABLET PO SCH ×2 (09:40→16:56)
[2021-02-10] MEDS: *HR* Metformin 500 MG TABLET PO SCH ×2 (09:40→16:57)
[2021-02-10] MEDS: Pregabalin 50 MG CAPSULE PO SCH ×3 (09:40→22:55)
[2021-02-10] MEDS: Ranolazine 500 MG TAB.ER.12H PO SCH ×2 (09:40→22:56)
[2021-02-10] MEDS: *HR* Pioglitazone 15 MG TABLET PO SCH (09:40)
[2021-02-10] MEDS: *HR* HYDROcodone/Acet 7.5/325 mg TABLET PO PRN ×3 (09:43→22:55)
[2021-02-10] MEDS: Insulin DETEMIR 100 UNIT/ML X5UNITS SUBQ SCH ×2 (09:43→22:54)
[2021-02-10] MEDS: Sennosides/Docusate Sodium TABLET PO PRN ×2 (09:47→22:54)
[2021-02-11] MEDS: Aspirin Enteric Coated 81 MG Tablet PO SCH (07:44)
[2021-02-11] MEDS: *HR* Amiodarone 200 MG TABLET PO SCH (07:45)
[2021-02-11] MEDS: FLUoxetine 20 MG CAPSULE PO SCH (07:45)
[2021-02-11] MEDS: Ranolazine 500 MG TAB.ER.12H PO SCH ×2 (07:45→20:50)
[2021-02-11] MEDS: Pregabalin 50 MG CAPSULE PO SCH ×3 (07:45→20:52)
[2021-02-11] MEDS: *HR* HYDROcodone/Acet 7.5/325 mg TABLET PO PRN ×2 (07:45→20:51)
[2021-02-11] MEDS: *HR* Pioglitazone 15 MG TABLET PO SCH (07:45)
[2021-02-11] MEDS: carvediloL 6.25 MG TABLET PO SCH ×2 (07:45→16:53)
[2021-02-11] MEDS: *HR* Metformin 500 MG TABLET PO SCH ×2 (07:45→16:53)
[2021-02-11] MEDS: Insulin LISPRO 300 UNITS/3 ML VIAL SUBQ SCH ×4 (07:46→20:52)
[2021-02-11] MEDS: Sennosides/Docusate Sodium TABLET PO PRN (07:48)
[2021-02-11] MEDS: Insulin DETEMIR 100 UNIT/ML X5UNITS SUBQ SCH ×2 (09:40→20:53)
[2021-02-12] MEDS: Insulin LISPRO 300 UNITS/3 ML VIAL SUBQ SCH ×4 (07:31→20:41)
[2021-02-12] MEDS: *HR* Pioglitazone 15 MG TABLET PO SCH (07:51)
[2021-02-12] MEDS: Aspirin Enteric Coated 81 MG Tablet PO SCH (07:51)
[2021-02-12] MEDS: Sennosides/Docusate Sodium TABLET PO PRN ×2 (07:51→20:49)
[2021-02-12] MEDS: *HR* HYDROcodone/Acet 7.5/325 mg TABLET PO PRN ×2 (07:51→20:49)
[2021-02-12] MEDS: *HR* Metformin 500 MG TABLET PO SCH ×2 (07:52→17:18)
[2021-02-12] MEDS: carvediloL 6.25 MG TABLET PO SCH ×2 (07:52→17:18)
[2021-02-12] MEDS: *HR* Amiodarone 200 MG TABLET PO SCH (07:52)
[2021-02-12] MEDS: Pregabalin 50 MG CAPSULE PO SCH ×3 (07:52→20:49)
[2021-02-12] MEDS: FLUoxetine 20 MG CAPSULE PO SCH (07:52)
[2021-02-12] MEDS: Ranolazine 500 MG TAB.ER.12H PO SCH ×2 (07:52→20:49)
[2021-02-12] MEDS: Insulin DETEMIR 100 UNIT/ML X5UNITS SUBQ SCH ×2 (09:01→20:51)
[2021-02-12] MEDS: (Dulaglutide [Trulicity] 1.5 MG/0.5 ML Pen.Injctr) SQ SCH (19:45)
[2021-02-13] MEDS: *HR* HYDROcodone/Acet 7.5/325 mg TABLET PO PRN ×2 (07:45→20:02)
[2021-02-13] MEDS: Insulin LISPRO 300 UNITS/3 ML VIAL SUBQ SCH ×4 (07:45→20:03)
[2021-02-13] MEDS: Aspirin Enteric Coated 81 MG Tablet PO SCH (07:45)
[2021-02-13] MEDS: Pregabalin 50 MG CAPSULE PO SCH ×3 (07:46→20:01)
[2021-02-13] MEDS: Sennosides/Docusate Sodium TABLET PO PRN (07:46)
[2021-02-13] MEDS: carvediloL 6.25 MG TABLET PO SCH ×2 (07:46→16:31)
[2021-02-13] MEDS: Ranolazine 500 MG TAB.ER.12H PO SCH ×2 (07:46→20:02)
[2021-02-13] MEDS: FLUoxetine 20 MG CAPSULE PO SCH (07:46)
[2021-02-13] MEDS: *HR* Metformin 500 MG TABLET PO SCH ×2 (07:46→16:31)
[2021-02-13] MEDS: *HR* Pioglitazone 15 MG TABLET PO SCH (07:46)
[2021-02-13] MEDS: *HR* Amiodarone 200 MG TABLET PO SCH (07:47)
[2021-02-13] MEDS: Insulin DETEMIR 100 UNIT/ML X5UNITS SUBQ SCH ×2 (08:15→20:05)
[2021-02-13] MEDS: Acetaminophen 325 MG TABLET PO PRN (16:30)
[2021-02-14 08:24] LABS: Basophils % 0.6 %; Eosinophils # 0.1 K/mcL (0.0-0.6); Eosinophils % 2.1 %; Hemoglobin 9.3 g/dL (11.5-15.4); Immature Granulocytes % 0.4 % (0-4); Lymphocytes % 19.5 %; Mean Corpuscular Hemoglobin 24.2 pg (28.0-33.3); Mean Corpuscular Volume 78.1 fL (83.0-100.0); Monocytes # 0.4 K/mcL (0.0-1.3); Monocytes % 7.4 %; Neutrophils # 3.4 K/mcL (1.6-8.9); Platelet Count 250 K/mcL (140-400); Red Blood Count 3.84 M/mcL (3.82-4.97); Red Cell Distribution Width 17.3 % (11.5-14.5); White Blood Count 4.9 K/mcL (4.3-11.1)
[2021-02-14 08:59] LABS: BUN/Creatinine Ratio 16 (6-26); Blood Urea Nitrogen 16 mg/dL (6-20); Calcium 8.6 mg/dL (8.6-10.3); Carbon Dioxide 32 mEq/L (23-29); Chloride 101 mEq/L (98-107); Glucose 91 mg/dL (70-105); Osmolality,Calculated 287 (280-300); Potassium 4.5 mEq/L (3.5-5.1); Sodium 138 mEq/L (136-145); eGFR For African Americans > 60 (> 60); eGFR For Non-African Americans 56 (> 60)
[2021-02-14] MEDS: Insulin LISPRO 300 UNITS/3 ML VIAL SUBQ SCH ×4 (09:04→19:44)
[2021-02-14] MEDS: *HR* Pioglitazone 15 MG TABLET PO SCH (09:14)
[2021-02-14] MEDS: Ranolazine 500 MG TAB.ER.12H PO SCH ×2 (09:14→19:48)
[2021-02-14] MEDS: Acetaminophen 325 MG TABLET PO PRN ×2 (09:15→16:51)
[2021-02-14] MEDS: Pregabalin 50 MG CAPSULE PO SCH ×3 (09:15→19:43)
[2021-02-14] MEDS: Aspirin Enteric Coated 81 MG Tablet PO SCH (09:16)
[2021-02-14] MEDS: carvediloL 6.25 MG TABLET PO SCH ×2 (09:16→16:51)
[2021-02-14] MEDS: Insulin DETEMIR 100 UNIT/ML X5UNITS SUBQ SCH ×2 (09:16→19:44)
[2021-02-14] MEDS: FLUoxetine 20 MG CAPSULE PO SCH (09:16)
[2021-02-14] MEDS: *HR* Metformin 500 MG TABLET PO SCH ×2 (09:16→16:51)
[2021-02-14] MEDS: *HR* Amiodarone 200 MG TABLET PO SCH (09:16)
[2021-02-14] MEDS: *HR* HYDROcodone/Acet 7.5/325 mg TABLET PO PRN (19:43)
[2021-02-15] MEDS: Insulin DETEMIR 100 UNIT/ML X5UNITS SUBQ SCH ×2 (08:01→20:09)
[2021-02-15] MEDS: *HR* HYDROcodone/Acet 7.5/325 mg TABLET PO PRN ×3 (08:03→20:06)
[2021-02-15] MEDS: *HR* Amiodarone 200 MG TABLET PO SCH (08:03)
[2021-02-15] MEDS: carvediloL 6.25 MG TABLET PO SCH ×2 (08:03→16:23)
[2021-02-15] MEDS: Pregabalin 50 MG CAPSULE PO SCH ×3 (08:03→20:06)
[2021-02-15] MEDS: *HR* Metformin 500 MG TABLET PO SCH ×2 (08:03→16:23)
[2021-02-15] MEDS: *HR* Pioglitazone 15 MG TABLET PO SCH (08:03)
[2021-02-15] MEDS: Aspirin Enteric Coated 81 MG Tablet PO SCH (08:03)
[2021-02-15] MEDS: Ranolazine 500 MG TAB.ER.12H PO SCH ×2 (08:03→20:07)
[2021-02-15] MEDS: FLUoxetine 20 MG CAPSULE PO SCH (08:03)
[2021-02-15] MEDS: Insulin LISPRO 300 UNITS/3 ML VIAL SUBQ SCH ×4 (08:04→20:07)
[2021-02-15] MEDS: Acetaminophen 325 MG TABLET PO PRN (16:22)
[2021-02-16] MEDS: Insulin LISPRO 300 UNITS/3 ML VIAL SUBQ SCH ×4 (07:49→21:16)
[2021-02-16] MEDS: *HR* Pioglitazone 15 MG TABLET PO SCH (09:55)
[2021-02-16] MEDS: Aspirin Enteric Coated 81 MG Tablet PO SCH (09:55)
[2021-02-16] MEDS: carvediloL 6.25 MG TABLET PO SCH ×2 (09:55→18:00)
[2021-02-16] MEDS: FLUoxetine 20 MG CAPSULE PO SCH (09:56)
[2021-02-16] MEDS: *HR* Amiodarone 200 MG TABLET PO SCH (09:56)
[2021-02-16] MEDS: *HR* Metformin 500 MG TABLET PO SCH ×2 (09:56→18:00)
[2021-02-16] MEDS: Ranolazine 500 MG TAB.ER.12H PO SCH ×2 (09:56→21:15)
[2021-02-16] MEDS: Pregabalin 50 MG CAPSULE PO SCH ×3 (09:56→21:15)
[2021-02-16] MEDS: Insulin DETEMIR 100 UNIT/ML X5UNITS SUBQ SCH ×2 (09:57→21:15)
[2021-02-16] MEDS: *HR* HYDROcodone/Acet 7.5/325 mg TABLET PO PRN ×2 (15:35→21:39)
[2021-02-17] MEDS: Insulin LISPRO 300 UNITS/3 ML VIAL SUBQ SCH ×4 (07:49→21:17)
[2021-02-17] MEDS: *HR* Pioglitazone 15 MG TABLET PO SCH (09:16)
[2021-02-17] MEDS: Ranolazine 500 MG TAB.ER.12H PO SCH ×2 (09:16→21:16)
[2021-02-17] MEDS: carvediloL 6.25 MG TABLET PO SCH ×2 (09:16→16:48)
[2021-02-17] MEDS: FLUoxetine 20 MG CAPSULE PO SCH (09:16)
[2021-02-17] MEDS: Aspirin Enteric Coated 81 MG Tablet PO SCH (09:16)
[2021-02-17] MEDS: *HR* Metformin 500 MG TABLET PO SCH ×2 (09:17→16:48)
[2021-02-17] MEDS: Insulin DETEMIR 100 UNIT/ML X5UNITS SUBQ SCH ×2 (09:17→21:16)
[2021-02-17] MEDS: *HR* Amiodarone 200 MG TABLET PO SCH (09:17)
[2021-02-17] MEDS: Pregabalin 50 MG CAPSULE PO SCH ×3 (09:17→21:16)
[2021-02-17] MEDS: *HR* HYDROcodone/Acet 7.5/325 mg TABLET PO PRN (15:17)
[2021-02-18] MEDS: Insulin LISPRO 300 UNITS/3 ML VIAL SUBQ SCH ×4 (07:42→22:10)
[2021-02-18] MEDS: FLUoxetine 20 MG CAPSULE PO SCH (08:35)
[2021-02-18] MEDS: *HR* Pioglitazone 15 MG TABLET PO SCH (08:35)
[2021-02-18] MEDS: Pregabalin 50 MG CAPSULE PO SCH ×3 (08:35→22:11)
[2021-02-18] MEDS: *HR* Amiodarone 200 MG TABLET PO SCH (08:35)
[2021-02-18] MEDS: Aspirin Enteric Coated 81 MG Tablet PO SCH (08:35)
[2021-02-18] MEDS: *HR* Metformin 500 MG TABLET PO SCH ×2 (08:36→17:26)
[2021-02-18] MEDS: carvediloL 6.25 MG TABLET PO SCH ×2 (08:36→17:26)
[2021-02-18] MEDS: Ranolazine 500 MG TAB.ER.12H PO SCH ×2 (08:36→22:11)
[2021-02-18] MEDS: Insulin DETEMIR 100 UNIT/ML X5UNITS SUBQ SCH ×2 (08:37→22:11)
[2021-02-19] MEDS: Insulin LISPRO 300 UNITS/3 ML VIAL SUBQ SCH ×4 (07:09→20:46)
[2021-02-19] MEDS: Aspirin Enteric Coated 81 MG Tablet PO SCH (08:11)
[2021-02-19] MEDS: FLUoxetine 20 MG CAPSULE PO SCH (08:11)
[2021-02-19] MEDS: Pregabalin 50 MG CAPSULE PO SCH ×3 (08:11→20:45)
[2021-02-19] MEDS: *HR* Pioglitazone 15 MG TABLET PO SCH (08:11)
[2021-02-19] MEDS: *HR* Metformin 500 MG TABLET PO SCH ×2 (08:11→17:51)
[2021-02-19] MEDS: Ranolazine 500 MG TAB.ER.12H PO SCH ×2 (08:11→20:45)
[2021-02-19] MEDS: *HR* Amiodarone 200 MG TABLET PO SCH (08:12)
[2021-02-19] MEDS: carvediloL 6.25 MG TABLET PO SCH ×2 (08:12→17:52)
[2021-02-19] MEDS: Insulin DETEMIR 100 UNIT/ML X5UNITS SUBQ SCH ×2 (09:25→20:46)
[2021-02-19] MEDS: (Dulaglutide [Trulicity] 1.5 MG/0.5 ML Pen.Injctr) SQ SCH ×2 (20:46→22:53)
[2021-02-20] MEDS: Insulin LISPRO 300 UNITS/3 ML VIAL SUBQ SCH ×4 (07:50→21:10)
[2021-02-20] MEDS: FLUoxetine 20 MG CAPSULE PO SCH (08:02)
[2021-02-20] MEDS: *HR* Amiodarone 200 MG TABLET PO SCH (08:03)
[2021-02-20] MEDS: carvediloL 6.25 MG TABLET PO SCH ×2 (08:03→16:20)
[2021-02-20] MEDS: Ranolazine 500 MG TAB.ER.12H PO SCH ×2 (08:04→21:09)
[2021-02-20] MEDS: Acetaminophen 325 MG TABLET PO PRN (08:04)
[2021-02-20] MEDS: *HR* Metformin 500 MG TABLET PO SCH ×2 (08:04→16:14)
[2021-02-20] MEDS: *HR* Pioglitazone 15 MG TABLET PO SCH (08:05)
[2021-02-20] MEDS: Insulin DETEMIR 100 UNIT/ML X5UNITS SUBQ SCH ×2 (08:05→21:11)
[2021-02-20] MEDS: Aspirin Enteric Coated 81 MG Tablet PO SCH (08:05)
[2021-02-20] MEDS: *HR* HYDROcodone/Acet 7.5/325 mg TABLET PO PRN (13:13)
[2021-02-20] MEDS: Pregabalin 50 MG CAPSULE PO SCH ×2 (14:03→21:09)
[2021-02-20] MEDS: Ondansetron ODT 4 MG TAB.RAPDIS SL PRN (20:44)
[2021-02-20] MEDS: Sennosides/Docusate Sodium TABLET PO PRN (21:09)
[2021-02-21] MEDS: Insulin LISPRO 300 UNITS/3 ML VIAL SUBQ SCH ×4 (08:06→20:56)
[2021-02-21] MEDS: carvediloL 6.25 MG TABLET PO SCH ×2 (09:18→17:18)
[2021-02-21] MEDS: *HR* Metformin 500 MG TABLET PO SCH ×2 (09:18→17:18)
[2021-02-21] MEDS: Ranolazine 500 MG TAB.ER.12H PO SCH ×2 (09:19→20:56)
[2021-02-21] MEDS: *HR* Pioglitazone 15 MG TABLET PO SCH (09:19)
[2021-02-21] MEDS: FLUoxetine 20 MG CAPSULE PO SCH (09:19)
[2021-02-21] MEDS: *HR* Amiodarone 200 MG TABLET PO SCH (09:19)
[2021-02-21] MEDS: Aspirin Enteric Coated 81 MG Tablet PO SCH (09:19)
[2021-02-21] MEDS: Acetaminophen 325 MG TABLET PO PRN (09:19)
[2021-02-21] MEDS: Pregabalin 50 MG CAPSULE PO SCH ×3 (09:19→20:56)
[2021-02-21] MEDS: Insulin DETEMIR 100 UNIT/ML X5UNITS SUBQ SCH ×2 (09:19→20:44)
[2021-02-21] MEDS: Sennosides/Docusate Sodium TABLET PO PRN (09:24)
[2021-02-22] MEDS: Insulin LISPRO 300 UNITS/3 ML VIAL SUBQ SCH ×4 (08:00→21:22)
[2021-02-22] MEDS: Pregabalin 50 MG CAPSULE PO SCH ×2 (09:48→17:01)
[2021-02-22] MEDS: FLUoxetine 20 MG CAPSULE PO SCH (09:48)
[2021-02-22] MEDS: Aspirin Enteric Coated 81 MG Tablet PO SCH (09:49)
[2021-02-22] MEDS: Ranolazine 500 MG TAB.ER.12H PO SCH ×2 (09:49→21:21)
[2021-02-22] MEDS: carvediloL 6.25 MG TABLET PO SCH ×2 (09:49→17:01)
[2021-02-22] MEDS: *HR* Pioglitazone 15 MG TABLET PO SCH (09:49)
[2021-02-22] MEDS: *HR* Amiodarone 200 MG TABLET PO SCH (09:49)
[2021-02-22] MEDS: *HR* Metformin 500 MG TABLET PO SCH ×2 (09:49→17:01)
[2021-02-22] MEDS: Insulin DETEMIR 100 UNIT/ML X5UNITS SUBQ SCH ×2 (09:51→21:21)
[2021-02-22] MEDS: *HR* HYDROcodone/Acet 7.5/325 mg TABLET PO PRN (17:01)
[2021-02-22] MEDS: Acetaminophen 325 MG TABLET PO PRN (21:20)
[2021-02-23] MEDS: Pregabalin 50 MG CAPSULE PO SCH ×3 (00:04→16:11)
[2021-02-23 07:19] VITALS: BP 144/65; PULSE 70; RESP 16; TEMP 97.7; O2SAT 96
[2021-02-23] MEDS: Insulin LISPRO 300 UNITS/3 ML VIAL SUBQ SCH ×2 (07:39→12:10)
[2021-02-23] MEDS: Insulin DETEMIR 100 UNIT/ML X5UNITS SUBQ SCH (09:24)
[2021-02-23] MEDS: Aspirin Enteric Coated 81 MG Tablet PO SCH (09:25)
[2021-02-23] MEDS: Ranolazine 500 MG TAB.ER.12H PO SCH (09:25)
[2021-02-23] MEDS: *HR* Pioglitazone 15 MG TABLET PO SCH (09:25)
[2021-02-23] MEDS: FLUoxetine 20 MG CAPSULE PO SCH (09:25)
[2021-02-23] MEDS: carvediloL 6.25 MG TABLET PO SCH ×2 (09:26→16:11)
[2021-02-23] MEDS: *HR* Metformin 500 MG TABLET PO SCH ×2 (09:26→16:11)
[2021-02-23] MEDS: *HR* Amiodarone 200 MG TABLET PO SCH (09:26)
[2021-02-23] MEDS: Acetaminophen 325 MG TABLET PO PRN (09:32)
[2021-02-23] MEDS: Ondansetron ODT 4 MG TAB.RAPDIS SL PRN (11:26)
== END 2021-02-23 16:52 | disposition home health service (06) | DRG 945 ==
LOC: INPPIK 20:03
PROVIDERS: ADMIT Family Medicine; ATTEND Family Medicine